=== PATIENT | female | born 1945 | race Caucasian/White ===

== ENCOUNTER → 2019-11-18 | Outpatient (CLI) | payer MEDICARE, MEDICAID ==
[2019-11-18 14:36] LABS: FREE T3 3.63 pg/mL (2.77-5.27); FREE T4 (FREE THYROXINE) 0.93 ng/dL (0.78-2.19)
[2019-11-18 14:50] LABS: THYROID STIMULATING HORMONE 3.24 uIU/mL (0.47-4.68)
[2019-11-18 15:26] LABS: FOLATE 10.3 ng/mL (>2.76)
== END ==
LOC: OD 12:55
PROVIDERS: ATTEND Specialist
DX: G62.9 Polyneuropathy, unspecified (principal); D51.0 Vitamin B12 deficiency anemia due to intrinsic factor deficiency; Z79.899 Other long term (current) drug therapy
CPT/HCPCS: 36415; 82607; 82746; 83036; 84439; 84443; 84481